=== PATIENT | female | born 1985 | race Caucasian/White ===

== ENCOUNTER 2017-11-04 19:15 | Emergency (ER) | payer OTHER ==
[~2017-11-04] VITALS: Ht 162.6 cm; Wt 90.9 kg
[~2017-11-04 19:15] MED LIST: AMOXICILLI250 MG/5 M PO; CELEXA20 MG PO; CELEXA40 MG PO; CLONAZEPAM1 MG PO; FLEXERIL10 MG PO; HYDROCODON-ACE1 EAC8 PO; ORTHO TRI-CY1 TABLE1 PO; PERCOCET 5/31 TABLET PO; SEROQUEL50 MG PO; TYLENOL WITH C1 EACH PO
[2017-11-04 21:44] VITALS: BP 101/68
== END 2017-11-04 21:45 | disposition home or self-care (01) ==
LOC: EME 19:15
PROC: 0RSDXZZ Reposition Left Temporomandibular Joint, External Approach (ICD-10-PCS; principal; 2017-11-04)
DX: S03.02XA Dislocation of jaw, left side, initial encounter (principal); Z88.2 Allergy status to sulfonamides; Z91.041 Radiographic dye allergy status
CPT/HCPCS: 70110; 99281; 99285; J2060; J3010